=== PATIENT | male | born 1995 | race Caucasian/White ===

== ENCOUNTER 2017-09-01 02:39 | Emergency (ER) | payer OTHER ==
[2017-09-01 03:00] VITALS: BMI 32.1
--- NOTE | 2017-09-01 05:07 | ED PDOC ---
HPI: General Adult Time Seen by Provider: 09/01/17 03:39 Chief Complaint (Nursing): Body Fluid Exposure Chief Complaint (Provider): Body Fluid Exposure History Per: Patient History/Exam Limitations: no limitations Onset/Duration Of Symptoms: Sudden Onset Additional Complaint(s): 22 year old male, [place], presents to the ED for an evaluation after exposure to bodily fluids on the job prior to arrival. Patient was assessing a person for epistaxis and had saliva mixed with blood spewed onto his face as the person spoke. He denies any physical complaints at this time but expresses concern for possible disease transmission. PMD: none provided Past Medical History Reviewed: Historical Data, Nursing Documentation, Vital Signs Vital Signs: Last Vital Signs Temp 98.3 F 09/01/17 06:09 Pulse 67 09/01/17 06:09 Resp 16 09/01/17 06:09 BP 121/72 09/01/17 06:09 Pulse Ox 97 09/01/17 06:09 - Medical History PMH: No Chronic Diseases - Surgical History Surgical History: No Surg Hx - Family History Family History: States: Unknown Family Hx - Social History Current smoker - smoking cessation education provided: No Alcohol: Social Drugs: Denies - Allergies Allergies/Adverse Reactions: Allergies Allergy/AdvReac Type Severity Reaction Status Date / Time No Known Allergies Allergy Unverified 03/11/14 15:30 Review of Systems ROS Statement: Except As Marked, All Systems Reviewed And Found Negative Constitutional: Positive for: Other (exposure to bodily fluids) Physical Exam - Reviewed Nursing Documentation Reviewed: Yes Vital Signs Reviewed: Yes - Physical Exam Comments: GENERAL APPEARANCE: Patient is awake, alert, oriented x 3, in no acute distress. Resting comfortably. SKIN: Warm, dry; (-) cyanosis, (-) rash. EYES: (-) conjunctival pallor, (-) scleral icterus, (-) conjunctival hemorrhage (-) FB (-) hyphema (-) chemosis. EOMI and painless. Pupils reactive. (-) periorbital tenderness or swelling. ENMT: Mucous membranes are moist. Airway patent: (-) stridor. Pharynx: (-) erythema, (-) exudate. NECK: Supple, FROM (-) tenderness, (-) stiffness, (-) meningismus, (-) lymphadenopathy. RESPIRATORY: Lungs clear to auscultation bilaterally (-) rales (-) rhonchi (-) wheezing CARDIAC: (-) murmur NEURO AND PSYCH: Mental status as above; (-) focal findings. - ECG O2 Sat by Pulse Oximetry: 96 (RA) Pulse Ox Interpretation: Normal Medical Decision Making Medical Decision Making: Initial Impression: Exposure of bodily fluids; Concern for disease transmission Time: 314 --Risks and benefits of PEP explained to patient. Since source of concern is currently being evaluated in ED, a rapid HIV test can be performed on that patient for precaution. Patient states he will make a decision regarding plan of care based on the source's results. Time: 514 --Consent obtained from source patient by Dr. Hutton for disclosing (-) HIV status to patient in order to guide decision of PEP. Witnessed by source patient 's primary nurse: Jamarcus Damian. --Results of source's negative HIV to patient discussed. He declines PEP treatment at this time. On re-evaluation, patient offers no additional complaints. On exam, patient remains AAOx3, in no acute distress. On exam, neck is supple, lungs CTA, cardiac RRR, neuro exam shows no focal findings. VSS, stable for discharge. Diagnostic results d/w the patient in great detail. Dx of exposure to body fluids d/w the patient. Based on history, exam and diagnostic results plan will be for outpatient follow up. Advised to follow up with primary care physician in 1-2 days without fail. Return to the emergency room at any time for any new or worsening symptoms. Patient states he fully agrees with and understands discharge instructions. States that he agrees with the plan and disposition. Verbalized and repeated discharge instructions and plan. I have given the patient opportunity to ask any additional questions. Scribe Attestation: Documented by Nataliia Bruce, acting as a scribe for Annette Alva PA-C. Provider Scribe Attestation: All medical record entries made by the Scribe were at my direction and personally dictated by me. I have reviewed the chart and agree that the record accurately reflects my personal performance of the history, physical exam, medical decision making, and the department course for this patient. I have also personally directed, reviewed, and agree with the discharge instructions and disposition. Disposition - Clinical Impression Clinical Impression: Exposure to blood or body fluid - Patient ED Disposition Is Patient to be Admitted: No Counseled Patient/Family Regarding: Studies Performed, Diagnosis, Need For Followup - Disposition Referrals: [facility] [Outside] Disposition: Routine/Home Disposition Time: 05:52 Condition: GOOD Additional Instructions: FOLLOWS UP PMD/CLINIC/WORKER'S COMP FOR FURTHER EVALUATION. RETURN TO ED WITH ANY NEW OR WORSENING SYMPTOMS. Instructions: Blood or Body Fluid Exposure Forms: [employer] (Micronesian) Print Language: EGYPTIAN - POA Present On Arrival: None
[2017-09-01 06:10] VITALS: BP 121/72; PULSE 67; RESP 16; TEMP 98.3
[2017-09-02 20:46] VITALS: O2SAT 96
== END 2017-09-01 06:09 | disposition home or self-care (01) ==
LOC: MERGE 02:39 → H.ER 02:39
DX: Z77.21 Contact with and (suspected) exposure to potentially hazardous body fluids (principal)